=== PATIENT | male | born 1955 | race Caucasian/White ===

== ENCOUNTER → 2020-12-11 | Outpatient (CLI) | payer BC ==
--- NOTE | 2020-12-11 16:39 | KCIC ---
EXAM: XR KNEE 3 VIEWS 12/11/2020 9:28 AM CLINICAL INDICATION: Chronic bilateral knee pain COMPARISON: 12/19/2013 TECHNIQUE: 3 views of the right and left knee FINDINGS: Left knee: There is severe medial compartment narrowing with near [id number] articulation, subchond ral sclerosis, and remodeling of the medial femoral condyle articular surface. Patellofemoral and lat eral compartment joint spaces are maintained. There are small tricompartmental osteophytes. No joint effusion. Right knee: Partially visualized intramedullary nail and screws in the distal femur are unchanged. Th ere is severe medial compartment narrowing with near [id number] articulation. Mild subchondral scle rosis and remodeling of the articular surface and the medial compartment. The lateral and patellofemo ral compartment spaces are maintained. There are tricompartment osteophytes. No joint effusion. This has worsened from 2014. IMPRESSION: Bilateral tricompartmental osteoarthrosis, severe in the medial compartment Electronically signed by: Kalie Tidwell MD (12/11/2020 4:37 PM) [id number]
== END ==
LOC: KCIC 08:56
PROVIDERS: ATTEND Nurse Practitioner
DX: M17.0 Bilateral primary osteoarthritis of knee (principal); M25.862 Other specified joint disorders, left knee; M25.861 Other specified joint disorders, right knee; M25.762 Osteophyte, left knee; M25.561 Pain in right knee; M25.562 Pain in left knee
CPT/HCPCS: 73562-50

== ENCOUNTER → 2021-01-29 | Outpatient (CLI) | payer BC ==
[~2021-01-29] MED LIST: AMLO-187 PO; ATOR20TA58 PO; CITA20TA6 PO; HYDR-2759 PO; IOHEXOL 180 MG/ML 10 ML VIAL. ONE; MELO15TA23 PO; METO25TA2 PO; TRIA50CA PO; methylPREDNISolone ACETATE 40 MG/ML VIAL. ONE; methylPREDNISolone ACETATE 80 MG/ML VIAL. ONE
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
--- NOTE | 2021-01-29 11:31 | PDOC4 ---
Procedure Note: ICD 10 Code: ICD 10 Code: M54.17 M51.87 Procedure Note: Patient was consented for lumbar epidural steroid injection with fluoroscopic guidance. Risks were discussed including but not limited to: Bleeding, infection, possibility of epidural hematoma and subsequent neurological compromise, dural puncture, headaches, spinal cord and/or nerve damage, side effects of steroid medication, and poor results regarding pain control. Patient understands and wished to proceed. Procedure is lumbar epidural steroid injection under local anesthetic using sterile prep and drape at the L5-S1 level using C-arm fluoroscopic guidance in both AP and lateral views medications injected is 120 mg Depo-Medrol +10mL preservative-free normal saline and 2 mL contrast- condition at discharge is stable patient tolerated procedure well had no complications. VALERIA AVALOS MD Jan 29, 2021 11:30
== END | disposition home or self-care (01) ==
LOC: PNCL 08:50
PROVIDERS: ATTEND Anesthesiology
DX: M51.17 Intervertebral disc disorders with radiculopathy, lumbosacral region (principal); M79.605 Pain in left leg; M19.90 Unspecified osteoarthritis, unspecified site; I10 Essential (primary) hypertension; G47.30 Sleep apnea, unspecified; E66.9 Obesity, unspecified; Z79.899 Other long term (current) drug therapy; Z98.890 Other specified postprocedural states
CPT/HCPCS: 62323; 99205; J1030; J1040; Q9965; G0463

== ENCOUNTER → 2021-03-03 | Outpatient (CLI) | payer BC ==
--- NOTE | 2021-03-03 09:18 | PDOC ---
Progress Note - Pain Clinic Date of Service: DOS: DATE: 03/03/21 TIME: 09:15 Diagnosis: Dx: Lumbar radiculopathy with lumbar degenerative disc disease History or Present Illness: HPI: 65-year-old male returns for follow-up status post lumbar epidural steroid injection x1 January 29 patient reports he did very well with moderate to decrease in pain by about 40% in the low back and left lower extremity but still significant pain in the left lower extremity in the low back patient reports occasional pain now in the right leg as well but only infrequently patient reports his left leg is mostly the chief complaint of pain rating the posterior gluteus posterior thigh posterior calf again on the right side of the posterior thigh but only infrequently only with extended standing patient reports is worse with walking standing changing positions described as aching and sharp in the leg tingling can be constant going the left leg especially patient reports a 9 on scale 10 at all times over the past week worse least and average is a 9 today patient reports initially doing much better with distance walking and doing household activities travel with greater ease sleeping better but now is beginning to wake him from sleep again about every 4 hours and is worse with standing and again standing with some pain on the right side as well. Patient reports no bowel or bladder incontinence at this time. Physical Exam: VS: Blood pressure 105 pulse 160 respirations 18 temperature 99.0 F height is 5 foot 11 inches weight is 334 pounds PE: PHYSICAL EXAMINATION: GENERAL: The patient is awake, alert, oriented, appropriate, very pleasant in demeanor HEENT: Shows normocephalic, atraumatic. Extraocular movements are intact and symmetrical. Oral cavity: Mucous membranes moist and pink. NECK: Shows anterior throat supple without palpable lymphadenopathy noted. Swallow reflex symmetrical. CHEST: Shows normal on inspection. Breath sounds are clear bilaterally distant but no rales or rhonchi. HEART: Shows S1, S2 clear. No murmurs auscultated. ABDOMEN: Soft, nontender, nondistended, obese. No palpable organomegaly is noted. BACK: Shows spine grossly in the midline. Normal-appearing cervical lordotic curvature. There is increased thoracic kyphosis, some flattening of the lumbar lordotic curvature. Lumbar paraspinous muscles show symmetrical on inspection, on palpation shows some moderate tenderness diffusely throughout the upper, middle and lower distribution of the paraspinous muscles without specific trigger points, without radiation of pain. The patient has good rotational motion of the lumbar spine, both laterally as well as extension and flexion without significant difficulty. No tenderness over the spinous processes, sacrum or sacroiliac regions. EXTREMITIES: Lower extremities show deep tendon reflexes 1+ in the patellar and tendo calcaneus tendons. Motor exam is 5 on a scale of 5 with right dorsiflexion, extension, quadriceps and hamstring flexion and 4/5 on the left. Peripheral pulses are 1+ posterior tibial. No peripheral edema is noted bilaterally. Lower extremities are warm and dry. SKIN: Shows warm and dry, good turgor. No edema. No sores, rashes or bruising throughout. Procedure: Procedure: Options discussed with patient. Patient chart was reviewed his current medication regimen updated current review of systems updated today as well. We will proceed with a second lumbar epidural steroid injection today with fluoroscopic guidance. Risks were discussed including but not limited to: Bleeding, infection, possibility of epidural hematoma and subsequent neurological compromise, dural puncture, headaches, spinal cord and/or nerve damage, side effects of steroid medication, and poor results regarding pain control. Patient understands and wished to proceed. Patient will return to the clinic in approximately 4 weeks for follow-up, was counseled return appointment, activity level, and side effects beware of. Medication Injected: Med Injected: Procedure is lumbar epidural steroid injection under local anesthetic using sterile prep and drape at the L5-S1 level using C-arm fluoroscopic guidance in both AP and lateral views medications injected is 120 mg Depo-Medrol +10mL preservative-free normal saline and 2 mL contrast- condition at discharge is stable patient tolerated procedure well had no complications. Condition at Discharge: Condition at Discharge: Condition at discharge stable, patient tolerated procedure well and had no complications. VALERIA AVALOS MD Mar 03, 2021 09:18
--- NOTE | 2021-03-03 09:19 | PDOC4 ---
Procedure Note: ICD 10 Code: ICD 10 Code: M54.17 M51.87 Procedure Note: Patient was consented for lumbar epidural steroid injection fluoroscopic guidance. Risks were discussed including but not limited to: Bleeding, infection, possibility of epidural hematoma and subsequent neurological compromise, dural puncture, headaches, spinal cord and/or nerve damage, side effects of steroid medication, and poor results regarding pain control. Patient understands and wished to proceed. Procedure is lumbar epidural steroid injection under local anesthetic using sterile prep and drape at the L5-S1 level using C-arm fluoroscopic guidance in both AP and lateral views medications injected is 120 mg Depo-Medrol +10mL preservative-free normal saline and 2 mL contrast- condition at discharge is stable patient tolerated procedure well had no complications. VALERIA AVALOS MD Mar 03, 2021 09:19
== END | disposition home or self-care (01) ==
LOC: PNCL 08:37
PROVIDERS: ATTEND Anesthesiology
DX: M51.16 Intervertebral disc disorders with radiculopathy, lumbar region (principal); Z79.899 Other long term (current) drug therapy
CPT/HCPCS: 62323; J1030; J1040; Q9965

== ENCOUNTER → 2021-04-13 | Outpatient (CLI) | payer BC ==
--- NOTE | 2021-04-13 09:19 | PDOC ---
Progress Note - Pain Clinic Date of Service: DOS: DATE: 04/13/21 TIME: 09:16 Diagnosis: Dx: Lumbar radiculopathy with lumbar degenerative disc disease History or Present Illness: HPI: 65-year-old male returns for follow-up status post lumbar epidural steroid injection x2. Patient was seen March 03, 2021 did very well about 75% improvement after last injection patient reports pain is in the low back and left lower extremity but much better than it was he is increase activities greater ease and comfort doing walking activities household activities travel with greater ease and comfort as well as working activities with much greater ease. Patient reports pain is a 4-5 on a scale of 10 is worst average and 2-3 at its least is a 3 today patient ports aching and tingling in the back rating the posterior gluteus posterior thigh posterior calf mostly in the upper part of the leg at this time with ambulating and standing patient reports no loss of motor function no bowel or bladder incontinence. Patient reports it wakes him from sleep about once a night maybe every 5 hours but otherwise is generally better with sitting or laying down and does not awaken from sleep at night. Patient reports no bowel or bladder incontinence. Physical Exam: VS: Blood pressure is 141/101 pulse 105 respirations 18 temperature 99.8 F height is 5 feet 11 inches weight is 334 pounds PE: PHYSICAL EXAMINATION: GENERAL: The patient is awake, alert, oriented, appropriate, very pleasant in demeanor HEENT: Shows normocephalic, atraumatic. Extraocular movements are intact and symmetrical. Oral cavity: Mucous membranes moist and pink. NECK: Shows anterior throat supple without palpable lymphadenopathy noted. Swallow reflex symmetrical. CHEST: Shows normal on inspection. Breath sounds are clear bilaterally, distant but no rales or rhonchi. HEART: Shows S1, S2 clear. No murmurs auscultated. ABDOMEN: Soft, nontender, nondistended. No palpable organomegaly is noted. BACK: Shows spine grossly in the midline. Normal-appearing cervical lordotic curvature. There is increased thoracic kyphosis, some flattening of the lumbar lordotic curvature. Lumbar paraspinous muscles show symmetrical on inspection, on palpation shows some moderate tenderness diffusely throughout the upper, middle and lower distribution of the paraspinous muscles without specific trigger points, without radiation of pain. The patient has good rotational motion of the lumbar spine, both laterally as well as extension and flexion without significant difficulty. EXTREMITIES: Lower extremities show deep tendon reflexes 1+ in the patellar and tendo calcaneus tendons. Motor exam is 5 on a scale of 5 with right dorsiflexion, extension, quadriceps and hamstring flexion and 4/5 on the left. Peripheral pulses are 1+ posterior tibial. No peripheral edema is noted bilaterally. Lower extremities are warm and dry to touch, equal in color and appearance. SKIN: Shows warm and dry, good turgor. No edema. No sores, rashes or bruising throughout. Procedure: Procedure: Options discussed with patient. Patient's chart was reviewed his his current medication regimen updated current review of systems updated today as well. We will proceed with a lumbar epidural steroid injection today with fluoroscopic guidance. Risks were discussed including but not limited to: Bleeding, infection, possibility of epidural hematoma and subsequent neurological compromise, dural puncture, headaches, spinal cord and/or nerve damage, side eff ects of steroid medication, and poor results regarding pain control. Patient understands and wished to proceed. Patient will return to clinic in approximately 4 weeks for follow-up, was counseled as to return appointment, active level, and side effects to be aware of. Medication Injected: Med Injected: Procedure is lumbar epidural steroid injection under local anesthetic using sterile prep and drape at the L5-S1 level using C-arm fluoroscopic guidance in both AP and lateral views medications injected is 120 mg Depo-Medrol +10mL preservative-free normal saline and 2 mL contrast- condition at discharge is stable patient tolerated procedure well had no complications. Condition at Discharge: Condition at Discharge: Condition at discharge stable, patient tolerated procedure well and had no complications. VALERIA AVALOS MD Apr 13, 2021 09:19
--- NOTE | 2021-04-13 09:20 | PDOC4 ---
Procedure Note: ICD 10 Code: ICD 10 Code: M54.17 M51.87 Procedure Note: Patient was consented for lumbar epidural steroid injection fluoroscopic guidance. Risks were discussed including but not limited to: Bleeding, infection, possibility of epidural hematoma and subsequent neurological compromise, dural puncture, headaches, spinal cord and/or nerve damage, side effects of steroid medication, and poor results regarding pain control. Patient understands and wished to proceed. Procedure is lumbar epidural steroid injection under local anesthetic using sterile prep and drape at the L5-S1 level using C-arm fluoroscopic guidance in both AP and lateral views medications injected is 120 mg Depo-Medrol +10mL preservative-free normal saline and 2 mL contrast- condition at discharge is stable patient tolerated procedure well had no complications. VALERIA AVALOS MD Apr 13, 2021 09:20
== END | disposition home or self-care (01) ==
LOC: PNCL 08:28
PROVIDERS: ATTEND Anesthesiology
DX: M51.16 Intervertebral disc disorders with radiculopathy, lumbar region (principal); Z79.899 Other long term (current) drug therapy
CPT/HCPCS: 62323; J1030; J1040; Q9965